=== PATIENT | female | born 1995 | race Caucasian/White ===

== ENCOUNTER 2021-05-18 16:48 | Inpatient (IN) | payer OTHER ==
[~2021-05-18] VITALS: Ht 167.6 cm; Wt 131.5 kg
[~2021-05-18 16:48] MED LIST: CLARITIN10 M2 PO; SINGULAIR10 MG PO; TRANDATE 100 M100 MG PO
[2021-05-18 17:58] LABS: HEMOGLOBIN 9.3 gm/dl (12.3-15.3); RED BLOOD COUNT 3.96 M/UL (4.00-5.10); WHITE BLOOD COUNT 8.4 K/UL (4.5-11.0)
[2021-05-18] MEDS ORDERED: PEPCID20 MG PO (18:08)
[2021-05-18] MEDS ORDERED: VENTOLIN/PROVE0.5 ML INH (18:08)
[2021-05-18] MEDS ORDERED: PRENATAL TABLE1 EAC1 PO (18:08)
[2021-05-18] MEDS ORDERED: EXCEDRIN EXTRA1 EACH PO (18:10)
[2021-05-19] MEDS ORDERED: HYDROCODONE-AC1 EACH PO (20:37)
[2021-05-19] MEDS ORDERED: IBUPROFEN600 MG PO (20:37)
[2021-05-19] MEDS ORDERED: DOCUSATE SODIU250 MG PO (20:37)
[2021-05-19] MEDS ORDERED: FEROSUL325 MG PO (20:37)
[2021-05-20 00:42] LABS: HEMOGLOBIN 9.4 gm/dl (12.3-15.3)
[2021-05-20 00:58] LABS: BUN/CREATININE RATIO 8 (0-10)
== END 2021-05-21 09:13 | disposition home or self-care (01) | DRG 787 ==
LOC: GENOP 16:48 → OB 17:19
PROVIDERS: Obstetrics & Gynecology; ADMIT Obstetrics & Gynecology
PROC: 10D00Z1 Extraction of Products of Conception, Low, Open Approach (ICD-10-PCS; principal; 2021-05-18)
PROC: 0UQC0ZZ Repair Cervix, Open Approach (ICD-10-PCS; 2021-05-18)
PROC: 10907ZC Drainage of Amniotic Fluid, Therapeutic from Products of Conception, Via Natural or Artificial Opening (ICD-10-PCS; 2021-05-18)
PROC: 4A1HXCZ Monitoring of Products of Conception, Cardiac Rate, External Approach (ICD-10-PCS; 2021-05-18)
PROC: 3E033VJ Introduction of Other Hormone into Peripheral Vein, Percutaneous Approach (ICD-10-PCS; 2021-05-18)
DX: O76 Abnormality in fetal heart rate and rhythm complicating labor and delivery (principal); O41.03X0 Oligohydramnios, third trimester, not applicable or unspecified; O72.1 Other immediate postpartum hemorrhage; D62 Acute posthemorrhagic anemia; Z37.0 Single live birth; Z3A.37 37 weeks gestation of pregnancy; O13.4 Gestational [pregnancy-induced] hypertension without significant proteinuria, complicating childbirth; O99.214 Obesity complicating childbirth; E66.01 Morbid (severe) obesity due to excess calories; O69.1XX0 Labor and delivery complicated by cord around neck, with compression, not applicable or unspecified; O90.81 Anemia of the puerperium
CPT/HCPCS: 36415; 80048; 81001; 82800; 85014; 85018; 85025; 86850; 86900; 86901; 86920; 94760; J0171; J0690; J1170; J1580; J2250; J2370; J2590; J2704; J7120; P9016